=== PATIENT | male | born 1995 | race Hispanic/Latino ===

== ENCOUNTER 2017-06-01 18:51 | Inpatient (IN) | payer OTHER ==
[~2017-06-01] VITALS: Ht 182.9 cm; Wt 72.7 kg
[2017-06-01] MEDS ORDERED: GASTROGRAFIN SOLUTION 30ML PO ONE (21:00)
[2017-06-01] MEDS ORDERED: GASTROGRAFIN SOLUTION 30ML (Q9963) As Ordered ONE (21:01)
[2017-06-01] MEDS ORDERED: GASTROGRAFIN SOLUTION 30ML (Q9963) PO ONE (21:30)
[2017-06-01 21:31] LABS: BASO % 0.4 % (0.0-1.0); EOS # 0.2 K/mm3 (0.0-0.50); EOS % 2.4 % (0.0-3.0); LARGE UNSTAINED CELL # 0.1 K/mm3 (0.0-0.4); LARGE UNSTAINED CELL % 1.5 % (0.0-4.0); LYMPH # 2.4 K/mm3 (1.5-6.5); LYMPH % 33.8 % (24.0-44.0); MEAN CORPUSCULAR HEMOGLOBIN 30.2 pg (27.0-33.0); MEAN CORPUSCULAR HGB CONC 33.2 g/dl (32.0-36.5); MEAN CORPUSCULAR VOLUME 90.8 fl (80.0-96.0); MONO # 0.4 K/mm3 (0.0-0.8); MONO % 5.5 % (0.0-5.0); NEUTROPHILS % 56.5 % (36.0-66.0); PLATELET COUNT, AUTOMATED 248 k/mm3 (150-450); RED CELL DISTRIBUTION WIDTH 12.9 % (11.5-14.5); WHITE BLOOD COUNT 7.1 K/mm3 (4.0-10.0)
[2017-06-01 21:59] LABS: ALBUMIN 3.9 GM/DL (3.2-5.2); ALBUMIN/GLOBULIN RATIO 1.56 (1.00-1.93); ALKALINE PHOSPHATASE 89 U/L (45-117); ALT/SGPT 23 U/L (12-78); AMYLASE 229 U/L (25-115); ANION GAP 6 MEQ/L (8-16); AST/SGOT 13 U/L (15-37); BILIRUBIN,DIRECT 0.1 MG/DL (0.0-0.2); BILIRUBIN,TOTAL 0.3 MG/DL (0.2-1.0); BLOOD UREA NITROGEN 15 MG/DL (7-18); CALCIUM LEVEL 8.6 MG/DL (8.5-10.1); CARBON DIOXIDE LEVEL 30 MEQ/L (21-32); CHLORIDE LEVEL 108 MEQ/L (98-107); GLOMERULAR FILTRATION RATE > 60.0 (>60); GLUCOSE, FASTING 85 MG/DL (70-105); SODIUM LEVEL 144 MEQ/L (136-145); TOTAL PROTEIN 6.4 GM/DL (6.4-8.2)
[2017-06-01] MEDS ORDERED: ISOVUE-370 76% 100ML VIAL (Q9967) As Ordered ONE (22:52)
[2017-06-01] MEDS ORDERED: MORPHINE 10 MG/ML 1ML VIAL IV ONE (23:30)
[2017-06-01] MEDS ORDERED: METOCLOPRAMIDE INJ 10MG/2ML VIAL (J2765) IV ONE (23:30)
[2017-06-01] MEDS ORDERED: NS 1,000 ML IV ONE (23:30)
[2017-06-02] MEDS ORDERED: ONDANSETRON 4MG/2ML VIAL (J2405) IV PRN (01:45)
[2017-06-02] MEDS ORDERED: SODIUM CHLORIDE 0.9% 1000 ML IV ONE (01:45)
[2017-06-02] MEDS: NS 1,000 ML IV SCH ×6 (01:45→21:16)
[2017-06-02] MEDS ORDERED: NICOTINE POLACRILEX 2 MG GUM PO ONE (02:15)
[2017-06-02] MEDS ORDERED: MORPHINE 2 MG/ML 1ML SYRINGE IV ONE (02:15)
[2017-06-02] MEDS ORDERED: GLUCAGON FOR INJ 1 MG VIAL (J1610) SC PRN (02:30)
[2017-06-02] MEDS ORDERED: GLUCOSE 4 GM CHEW TABLET PO PRN (02:30)
[2017-06-02] MEDS ORDERED: DEXTROSE 50% 50 ML SYRINGE IV PRN (02:30)
[2017-06-02 03:15] VITALS: BP 127/75
[2017-06-02 06:00] VITALS: BP 102/50
[2017-06-02 06:20] LABS: BASO % 0.3 % (0.0-1.0); EOS # 0.2 K/mm3 (0.0-0.50); EOS % 2.2 % (0.0-3.0); LARGE UNSTAINED CELL # 0.1 K/mm3 (0.0-0.4); LARGE UNSTAINED CELL % 1.5 % (0.0-4.0); LYMPH # 2.5 K/mm3 (1.5-6.5); LYMPH % 32.5 % (24.0-44.0); MEAN CORPUSCULAR HEMOGLOBIN 30.4 pg (27.0-33.0); MEAN CORPUSCULAR HGB CONC 33.1 g/dl (32.0-36.5); MEAN CORPUSCULAR VOLUME 91.8 fl (80.0-96.0); MONO # 0.5 K/mm3 (0.0-0.8); MONO % 7.2 % (0.0-5.0); NEUTROPHILS # 4.2 K/mm3 (1.8-7.7); NEUTROPHILS % 56.4 % (36.0-66.0); PLATELET COUNT, AUTOMATED 220 k/mm3 (150-450); RED CELL DISTRIBUTION WIDTH 13.1 % (11.5-14.5); WHITE BLOOD COUNT 7.4 K/mm3 (4.0-10.0)
--- NOTE | 2017-06-02 06:32 | HPE ---
DATE OF ADMISSION: 06/02/2017 PRIMARY CARE PHYSICIAN: Joselin Morales. HOSPITALIST: Dr. Camilo Espitia. CHIEF COMPLAINT: Epigastric abdominal pain. HISTORY OF PRESENTING ILLNESS: A 21-year-old male with no past medical history presents to the emergency room with three-week complaint of on-and-off epigastric abdominal pain with radiation to the back, worsened over the past day, accompanied with some nausea and vomiting at home. No fever or chills. Abdominal pain is described as sharp, achy , with radiation to the back, mostly in the epigastric region. No medications were taken for the pain. The patient has had some anorexia with decrease in appetite today, prompting him to present to the emergency room. Worse when he ambulates and walks around, better when he sits still and lies down quietly. The patient has had no prior episode of pain before. He denies heavy alcohol use, and drinks 1-3 beers every third days or seven beers over a weekend. Denies any recent trauma to the abdomen. Denies any spider bites. No recent travel. No other mirv-piw-dtwcdos medications or prescription medications taken. PAST MEDICAL HISTORY: None. PAST SURGICAL HISTORY: Tonsillectomy. SOCIAL HISTORY: Smokes four cigarettes a day since the age of 14. Drinks [place] 1-2 every other day, 3-7 on the weekends. Active-duty . FAMILY HISTORY: Mother and father alive in their 40s. Unknown medical problems. REVIEW OF SYSTEMS: The patient denies any fevers, chills, weight gain, weight loss. Has had decrease in appetite today with some nausea and one episode of vomiting. Epigastric and bilateral upper quadrant abdominal pain, radiation to the back. Nonbilious, non-projectile vomiting. No chest pain, pressure, tightness, shortness of breath , palpitations, lightheadedness. Denies dysuria, urgency, frequency, fever, chills , flank pain. Denies any lower extremity weakness, swelling, joint pain, ear pain, rhinorrhea, changes in vision or headache. 12-point system otherwise negative. PHYSICAL EXAMINATION: VITAL SIGNS: Temperature 99.6, pulse 77, respiratory rate 16, blood pressure 132/67, 100% on room air. GENERAL: The patient is awake, alert, and oriented times three. Anicteric sclerae. No jaundice. Pupils equal, round, and reactive to light and accommodation. Extraocular muscles are intact. Normocephalic, atraumatic. No cervical lymphadenopathy. No thyromegaly. No pharyngeal erythema. No jugular venous distention. Dry mucous membranes. LUNGS: Clear to auscultation. No wheezes, rales, or rhonchi. HEART: S1, S2. Sinus rhythm. ABDOMEN: Soft, tender to epigastric bilateral upper quadrants. No rebound, guarding. Positive bowel sounds times four quadrants. EXTREMITIES: No cyanosis, clubbing or pitting edema. LABORATORY DATA: White count 7.1, hemoglobin 13, hematocrit 39, platelet count 247. Sodium 144, potassium 4, chloride 108, bicarbonate 30, BUN 15, creatinine 0.9, glucose 85, calcium 8.6, total bilirubin 0.3, direct bilirubin 0.1, AST 13, ALT 23, alkaline phosphatase 89. Total protein 6.4, albumin 3.9, lipase 3768, amylase 229. Urine culture pending. IMAGING: CT abdomen and pelvis: No intra- or extra-hepatic biliary ductal dilatation. Gallbladder is within normal. Liver is without mass or defect. Pancreas is of normal contour and attenuation characteristics. No evidence of adrenal mass. No evidence of appendicitis. ASSESSMENT AND PLAN: This is a 21-year-old male with no past medical history aside from smoking, occasional alcohol use, who presents to the emergency room with epigastric abdominal pain, found to have a lipase level of 3768 without diarrhea or constipation, fever or chills. The patient is admitted for acute pancreatitis as an inpatient for two midnights. IMPRESSION: 1. Acute idiopathic pancreatitis. Patient denies any history of heavy alcohol abuse. No history of trauma, hypercalcemia, awaiting lipid panel. No gallstones on the CT. The patient will be treated empirically with nothing by mouth status, intravenous fluid with normal saline 250 an hour, hypoglycemic protocol and fingersticks every six hours while nothing by mouth. Chest fasting lipid profile , as well as magnetic resonance cholangiopancreatography (MCRP) to rule out pancreatic divisum etiology is unclear. Monitor for symptomatic improvement. 2. Active tobacco use. Tobacco cessation counseling. Nicotine gum as needed and nicotine patch. 3. Deep venous thrombosis (DVT) prophylaxis with compression stockings and Lovenox. The patient will be assigned to Dr. Camilo Espitia at 7 a.m. on 06/02/2017. DAMIAN
[2017-06-02 06:36] LABS: ANION GAP 5 MEQ/L (8-16); AST/SGOT 11 U/L (15-37); BLOOD UREA NITROGEN 10 MG/DL (7-18); CARBON DIOXIDE LEVEL 28 MEQ/L (21-32); CHLORIDE LEVEL 109 MEQ/L (98-107); CREATININE FOR GFR 0.76 MG/DL (0.70-1.30); GLOMERULAR FILTRATION RATE > 60.0 (>60); GLUCOSE, FASTING 90 MG/DL (70-105); POTASSIUM SERUM 4.2 MEQ/L (3.5-5.1); SODIUM LEVEL 142 MEQ/L (136-145)
[2017-06-02 06:37] LABS: ALBUMIN 3.3 GM/DL (3.2-5.2); ALBUMIN/GLOBULIN RATIO 1.22 (1.00-1.93); ALKALINE PHOSPHATASE 79 U/L (45-117); ALT/SGPT 20 U/L (12-78); BILIRUBIN,TOTAL 0.5 MG/DL (0.2-1.0); TRIGLYCERIDES LEVEL 43 MG/DL (<150)
[2017-06-02] MEDS: ENOXAPARIN 40 MG/0.4 ML SYRINGE (J1650) SC SCH (08:25)
[2017-06-02] MEDS: NICOTINE 14 MG/24 HR TRANSDERMAL TD SCH (08:25)
[2017-06-02] MEDS: NICOTINE POLACRILEX 2 MG GUM PO PRN ×2 (09:37→18:55)
[2017-06-02] MEDS ORDERED: CALCIUM GLUCONATE 1,000 MG in D5W MINI-BAG PLUS 100 ML IV ONE (10:00)
--- NOTE | 2017-06-02 10:39 | REP ---
MRCP: MRCP exam is accomplished utilizing multiple heavily T2-weighted sequences in the axial and coronal planes with MIP reconstruction images performed. Correlation made with CT abdomen and pelvis performed 06/01/2017. Gallbladder demonstrates no definite filling defect. The gallbladder wall does not appear to be edematous. There is no intrahepatic or extrahepatic biliary dilatation. Common bile duct is not dilated. Pancreatic duct is not dilated. The main pancreatic duct appears to drain through the minor papilla. I do not see a definite ventral duct. The common bile duct drains through the major papilla. Findings are compatible with pancreas divisum. There does appear to be some edema surrounding the tail of the pancreas, compatible with pancreatitis. IMPRESSION: Findings compatible with pancreas divisum. The main pancreatic duct appears to drain through the minor papilla. Ventral duct is not identified and may be absent. Common bile duct drains through the major papilla. Signed by Raudel Javed MD 06/02/2017 01:30 P
[2017-06-02] MEDS: MORPHINE 2 MG/ML 1ML SYRINGE IV PRN ×3 (11:02→21:16)
[2017-06-02 14:00] VITALS: BP 114/53
[2017-06-02 22:00] VITALS: BP 132/62
[2017-06-03] MEDS: NS 1,000 ML IV SCH (02:45)
[2017-06-03 06:00] VITALS: BP 114/52
[2017-06-03 06:18] LABS: BASO % 0.4 % (0.0-1.0); EOS # 0.1 K/mm3 (0.0-0.50); EOS % 1.6 % (0.0-3.0); LARGE UNSTAINED CELL # 0.1 K/mm3 (0.0-0.4); LYMPH # 1.9 K/mm3 (1.5-6.5); MEAN CORPUSCULAR HEMOGLOBIN 30.6 pg (27.0-33.0); MEAN CORPUSCULAR HGB CONC 33.5 g/dl (32.0-36.5); MEAN CORPUSCULAR VOLUME 91.3 fl (80.0-96.0); MONO # 0.3 K/mm3 (0.0-0.8); MONO % 4.8 % (0.0-5.0); NEUTROPHILS # 4.8 K/mm3 (1.8-7.7); NEUTROPHILS % 67.2 % (36.0-66.0); PLATELET COUNT, AUTOMATED 217 k/mm3 (150-450); WHITE BLOOD COUNT 7.1 K/mm3 (4.0-10.0)
[2017-06-03 06:27] LABS: ALBUMIN 3.3 GM/DL (3.2-5.2); ALBUMIN/GLOBULIN RATIO 1.18 (1.00-1.93); ALKALINE PHOSPHATASE 88 U/L (45-117); ALT/SGPT 18 U/L (12-78); ANION GAP 10 MEQ/L (8-16); AST/SGOT 11 U/L (15-37); BILIRUBIN,TOTAL 0.7 MG/DL (0.2-1.0); BLOOD UREA NITROGEN 7 MG/DL (7-18); CALCIUM LEVEL 8.2 MG/DL (8.5-10.1); CARBON DIOXIDE LEVEL 24 MEQ/L (21-32); CHLORIDE LEVEL 108 MEQ/L (98-107); CREATININE FOR GFR 0.74 MG/DL (0.70-1.30); GLOMERULAR FILTRATION RATE > 60.0 (>60); GLUCOSE, FASTING 70 MG/DL (70-105); POTASSIUM SERUM 3.9 MEQ/L (3.5-5.1); SODIUM LEVEL 142 MEQ/L (136-145); TOTAL PROTEIN 6.1 GM/DL (6.4-8.2)
[2017-06-03] MEDS: D5W/0.45% SODIUM CHLORIDE 1,000 ML IV SCH ×4 (06:44→21:42)
[2017-06-03] MEDS ORDERED: CALCIUM GLUCONATE 1,000 MG in D5W MINI-BAG PLUS 100 ML IV ONE (08:00)
[2017-06-03] MEDS: NICOTINE 14 MG/24 HR TRANSDERMAL TD SCH (08:57)
[2017-06-03] MEDS: ENOXAPARIN 40 MG/0.4 ML SYRINGE (J1650) SC SCH (09:19)
--- NOTE | 2017-06-03 09:47 | REPUSA ---
CLINICAL HISTORY: Abdominal pain. TECHNIQUE: Multiple axial, sagittal and coronal CT images were obtained through the abdomen and pelvi s after administration of oral and intravenous contrast material. COMMENTS: The liver is of uniform attenuation without mass or defect. There is no intra or extrahepatic biliary ductal dilatation. The spleen is normal. The gallbladder is within normal limits. The pancreas is of normal contour and attenuation characteristics. There is no evidence of adrenal mass. Both kidneys demonstrate prompt and equal nephrograms. The kidneys are normal in size, shape and conf iguration. There is no evidence of renal or ureteral mass. No renal or ureteral calculi are identifie d. There is no hydroureter or hydronephrosis. No evidence for appendicitis. There is no bowel wall thickening. No evidence for small or large kinza l obstruction. There is no evidence of abdominal ascites or lymphadenopathy. There is no evidence of intrinsic or extrinsic bladder mass. There is no pelvic ascites or lymphadeno darrius. Images of the lung bases show no evidence of pleural or parenchymal mass. There are no pleural effusi ons. The bony structures are free of lytic or blastic lesions. IMPRESSION: No evidence of acute abdominal or pelvic pathology. Thank you for your kind referral of this patient.
[2017-06-03 14:00] VITALS: BP 123/53
--- NOTE | 2017-06-03 15:57 | IPNPDOC ---
Text Note Date of Service The patient was seen on 06/03/17. NOTE Subjective: Pt states abd pain resolved. Objective: Vitals: (see below) General: No acute distress, laying comfortably in bed. HEENT: Moist mucous membranes. Neck: No JVD or lymphadenopathy Cardiac: RRR, No murmurs Pulm: Clear to auscultation b/l. No wheezing, rhonchi Abd: NT/ND + BS Ext: No edema or cyanosis Labs (see below) Images: MRCP 06/03/17 IMPRESSION:Findings compatible with pancreas divisum. The main pancreatic duct appears to drain through the minor papilla. Ventral duct is not identified and may be absent. Common bile duct drains through the major papilla. CT abd/pelvis 06/02/17 IMPRESSION: No evidence of acute abdominal or pelvic pathology. Assessment/Plan 1. Acute pancreatitis likely 2/2 alcohol, patient states he binge drinks on the weekends. ? Related to pancreatic divisum. LFTs wnl. Lipase trending down. Abd pain resolved. Started on clears, and advance as tolerated. Will need outpt GI followup. On IVF, d/c when tolerating regular diet. 2.Tobacco abuse and alcohol abuse - cessation counseling. DVT prophy: Enoxaparin. VS,Fishbone, I+O VS, Fishbone, I+O Laboratory Tests 06/03/17 05:47 Red Blood Count 4.10 L, Mean Corpuscular Volume 91.3, Mean Corpuscular Hemoglobin 30.6, Mean Corpuscular Hemoglobin Concent 33.5, Red Cell Distribution Width 13.0, Neutrophils (%) (Auto) 67.2 H, Lymphocytes (%) (Auto) 25.0, Monocytes (%) (Auto) 4.8, Eosinophils (%) (Auto) 1.6, Basophils (%) (Auto ) 0.4, Neutrophils # (Auto) 4.8, Lymphocytes # (Auto) 1.9, Monocytes # (Auto) 0.3, Eosinophils # (Auto) 0.1, Basophils # (Auto) 0.0, Calcium Level 8.2 L, Aspartate Amino Transf (AST/SGOT) 11 L, Alanine Aminotransferase (ALT/SGPT) 18, Alkaline Phosphatase 88, Total Bilirubin 0.7, Total Protein 6.1 L, Albumin 3.3 Vital Signs Date Time Temp Pulse Resp B/P (MAP) Pulse Ox O2 Delivery O2 Flow Rate FiO2 06/03/17 06:00 97.8 62 17 114/52 (72) 98 Room Air I&O- Last 24 Hours up to 6 AM 06/03/17 05:59 Intake Total 4350 ml Output Total 2625 ml Balance 1725 ml SUELLEN GALVEZ MD Jun 03, 2017 15:57
[2017-06-03] MEDS: MORPHINE 2 MG/ML 1ML SYRINGE IV PRN ×2 (19:54→23:20)
[2017-06-03 22:00] VITALS: BP 123/57
[2017-06-04] MEDS: D5W/0.45% SODIUM CHLORIDE 1,000 ML IV SCH ×2 (02:30→07:27)
[2017-06-04 06:00] VITALS: BP 120/60
[2017-06-04 06:09] LABS: ALBUMIN 3.3 GM/DL (3.2-5.2); ALBUMIN/GLOBULIN RATIO 1.14 (1.00-1.93); ALKALINE PHOSPHATASE 82 U/L (45-117); ALT/SGPT 17 U/L (12-78); ANION GAP 6 MEQ/L (8-16); AST/SGOT 10 U/L (15-37); BASO % 0.5 % (0.0-1.0); BILIRUBIN,TOTAL 0.4 MG/DL (0.2-1.0); BLOOD UREA NITROGEN 4 MG/DL (7-18); CALCIUM LEVEL 8.4 MG/DL (8.5-10.1); CARBON DIOXIDE LEVEL 30 MEQ/L (21-32); CHLORIDE LEVEL 106 MEQ/L (98-107); CREATININE FOR GFR 0.84 MG/DL (0.70-1.30); EOS # 0.1 K/mm3 (0.0-0.50); EOS % 2.3 % (0.0-3.0); GLOMERULAR FILTRATION RATE > 60.0 (>60); GLUCOSE, FASTING 118 MG/DL (70-105); LARGE UNSTAINED CELL # 0.1 K/mm3 (0.0-0.4); LARGE UNSTAINED CELL % 1.6 % (0.0-4.0); LYMPH # 1.7 K/mm3 (1.5-6.5); LYMPH % 27.5 % (24.0-44.0); MEAN CORPUSCULAR HGB CONC 32.9 g/dl (32.0-36.5); MEAN CORPUSCULAR VOLUME 91.3 fl (80.0-96.0); MONO # 0.4 K/mm3 (0.0-0.8); MONO % 6.2 % (0.0-5.0); NEUTROPHILS # 3.7 K/mm3 (1.8-7.7); NEUTROPHILS % 61.9 % (36.0-66.0); PLATELET COUNT, AUTOMATED 226 k/mm3 (150-450); POTASSIUM SERUM 3.7 MEQ/L (3.5-5.1); SODIUM LEVEL 142 MEQ/L (136-145); TOTAL PROTEIN 6.2 GM/DL (6.4-8.2)
[2017-06-04] MEDS: ENOXAPARIN 40 MG/0.4 ML SYRINGE (J1650) SC SCH (08:13)
[2017-06-04] MEDS: NICOTINE 14 MG/24 HR TRANSDERMAL TD SCH (08:13)
[2017-06-04 09:00] VITALS: BP 109/53
--- NOTE | 2017-06-04 12:05 | DS.PDOC ---
Discharge Summary General Date of Admission Jun 02, 2017 at 01:45 Date of Discharge 06/04/17 Attending Physician: SUELLEN GALVEZ MD Discharge Summary PROCEDURES PERFORMED DURING STAY: None. ADMITTING/DISCHARGE DIAGNOSES: 1. Acute pancreatitis -likely 2/2 alcohol use. ? related to pancreatic divisum 2. Tobacco abuse COMPLICATIONS/CHIEF COMPLAINT: Abd pain HISTORY OF PRESENT ILLNESS/HOSPITAL COURSE: 21-year-old male past medical history of tobacco abuse and presents complaining of abdominal pain 2 weeks. Patient was found to have acute pancreatitis. States he binge drinks on weekends periods was also complaining of nausea and nonbilious vomiting. Over the course of hospitalization, patient was kept nothing by mouth, was treated with IV fluids and pain control. Patient's pain has significantly improved, and was tolerating a regular diet at this time. I have spoken to Dr. Abdalla, recommends outpatient follow-up patient is tolerating a regular diet. He will be happy to follow up with him in the near future in the clinic. Patient is to avoid alcohol. If he does have recurrent episodes of pancreatitis despite avoiding alcohol, then further workup for his pancreatic divisum will be done at the time. Patient is hemodynamically stable. Discharge home today. Patient is to return if symptoms worsen. DISCHARGE MEDICATIONS: Please see below. ALLERGIES: Please see below. PHYSICAL EXAMINATION ON DISCHARGE: Vitals: (see below) General: No acute distress, laying comfortably in bed. HEENT: Moist mucous membranes. Neck: No JVD or lymphadenopathy Cardiac: RRR, No murmurs Pulm: Clear to auscultation b/l. No wheezing, rhonchi Abd: NT/ND + BS Ext: No edema or cyanosis LABORATORY DATA: Please see below. IMAGING: MRCP 06/03/17 IMPRESSION:Findings compatible with pancreas divisum. The main pancreatic duct appears to drain through the minor papilla. Ventral duct is not identified and may be absent. Common bile duct drains through the major papilla. CT abd/pelvis 06/02/17 IMPRESSION: No evidence of acute abdominal or pelvic pathology. PROGNOSIS: Fair ACTIVITY: As tolerated. DIET: Regular diet. DISCHARGE PLAN/DISPOSITION: DISCHARGE INSTRUCTIONS: 1. F/u with PCP and Dr. Abdalla in 1-2 weeks. Avoid alcohol DISCHARGE CONDITION: Stable. TIME SPENT ON DISCHARGE: Greater than 30 minutes. Vital Signs/I&Os Vital Signs Date Time Temp Pulse Resp B/P (MAP) Pulse Ox O2 Delivery O2 Flow Rate FiO2 06/04/17 09:00 97.5 60 16 109/53 (71) 99 Room Air I&O- Last 24 Hours up to 6 AM 06/04/17 06:00 Intake Total 6820 ml Output Total 4025 ml Balance 2795 ml Laboratory Data Labs 24H Laboratory Tests 2 06/04/17 05:31: White Blood Count 6.0, Red Blood Count 4.15L, Hemoglobin 12.5L, Hematocrit 37.9L , Mean Corpuscular Volume 91.3, Mean Corpuscular Hemoglobin 30.0, Mean Corpuscular Hemoglobin Concent 32.9, Red Cell Distribution Width 13.0, Platelet Count 226, Neutrophils (%) (Auto) 61.9, Lymphocytes (%) (Auto) 27.5, Monocytes ( %) (Auto) 6.2H, Eosinophils (%) (Auto) 2.3, Basophils (%) (Auto) 0.5, Neutrophils # (Auto) 3.7, Lymphocytes # (Auto) 1.7, Monocytes # (Auto) 0.4, Eosinophils # (Auto) 0.1, Basophils # (Auto) 0.0, Large Unclassified Cells % 1.6 , Large Unclassified Cells # 0.1, Anion Gap 6L, Glomerular Filtration Rate > 60.0, Blood Urea Nitrogen 4L, Creatinine 0.84, Sodium Level 142, Potassium Level 3.7, Chloride Level 106, Carbon Dioxide Level 30, Calcium Level 8.4L, Aspartate Amino Transf (AST/SGOT) 10L, Alanine Aminotransferase (ALT/SGPT) 17, Alkaline Phosphatase 82, Total Bilirubin 0.4, Total Protein 6.2L, Albumin 3.3, Albumin/Globulin Ratio 1.14, Lipase 2161H CBC/BMP Laboratory Tests 06/04/17 05:31 Red Blood Count 4.15 L, Mean Corpuscular Volume 91.3, Mean Corpuscular Hemoglobin 30.0, Mean Corpuscular Hemoglobin Concent 32.9, Red Cell Distribution Width 13.0, Neutrophils (%) (Auto) 61.9, Lymphocytes (%) (Auto) 27.5, Monocytes (%) (Auto) 6.2 H, Eosinophils (%) (Auto) 2.3, Basophils (%) ( Auto) 0.5, Neutrophils # (Auto) 3.7, Lymphocytes # (Auto) 1.7, Monocytes # (Auto ) 0.4, Eosinophils # (Auto) 0.1, Basophils # (Auto) 0.0, Calcium Level 8.4 L, Aspartate Amino Transf (AST/SGOT) 10 L, Alanine Aminotransferase (ALT/SGPT) 17, Alkaline Phosphatase 82, Total Bilirubin 0.4, Total Protein 6.2 L, Albumin 3.3 Microbiology Microbiology 06/01/17 Urine Culture - Final, Complete Discharge Medications No Active Prescriptions or Reported Meds Allergies Coded Allergies: No Known Allergies (Unverified , 06/01/17) SUELLEN GALVEZ MD Jun 04, 2017 12:05
[2017-06-04 13:45] VITALS: BP 127/58
== END 2017-06-04 14:24 | disposition home or self-care (01) | DRG 440 ==
LOC: M ED 18:51 → M ED INP 06-02 01:45 → M MSPAV 06-02 03:12
PROVIDERS: ADMIT General Practice; ATTEND Internal Medicine
DX: K85.20 Alcohol induced acute pancreatitis without necrosis or infection (principal); F17.210 Nicotine dependence, cigarettes, uncomplicated; F10.10 Alcohol abuse, uncomplicated